=== PATIENT | male | born 1980 | race African-American/Black ===

== ENCOUNTER 2021-12-01 13:01 | Emergency (ER) | payer BC ==
[2021-12-01] MEDS ORDERED: Ketorolac 30 MG/ML SDV IVPUSH ONE (13:19)
[2021-12-01] MEDS ORDERED: Metoclopramide 10 MG/2 ML SDV IVPUSH ONE (13:19)
[2021-12-01] MEDS ORDERED: diphenhydrAMINE 50 MG/ML SDV IVPUSH ONE (13:19)
[2021-12-01] MEDS ORDERED: Sodium Chloride 0.9% 1,000 ML IV ONE (13:19)
[2021-12-01] MEDS ORDERED: LORazepam 2 MG/ML Syringe IVPUSH ONE (13:41)
[2021-12-01] MEDS ORDERED: LORazepam 2 MG/ML SDV IVPUSH ONE (13:43)
[2021-12-01 14:38] VITALS: BP 110/61; PULSE 54
== END 2021-12-01 14:38 | disposition home or self-care (01) ==
LOC: MW.ED 13:01
DX: G43.909 Migraine, unspecified, not intractable, without status migrainosus (principal); E03.9 Hypothyroidism, unspecified; Z79.899 Other long term (current) drug therapy
CPT/HCPCS: 96361; 96374; 96375; 99283; J1200; J1885; J2060; J2765; J7030

== ENCOUNTER 2023-05-03 10:23 | Day surgery (SDC) | payer BC ==
[2023-05-03] MEDS ORDERED: propofoL 50 ML ONE (11:27)
[2023-05-03] MEDS ORDERED: Lactated Ringers 1,000 ML IV SCH (12:00)
[2023-05-03 13:51] VITALS: BP 115/67; PULSE 62
== END 2023-05-03 13:15 | disposition home or self-care (01) ==
LOC: MW.SDS 10:23
PROVIDERS: ATTEND Surgery
DX: Z12.11 Encounter for screening for malignant neoplasm of colon (principal); G47.30 Sleep apnea, unspecified; F41.9 Anxiety disorder, unspecified; F32.A Depression, unspecified; M54.2 Cervicalgia; G47.33 Obstructive sleep apnea (adult) (pediatric); Z79.899 Other long term (current) drug therapy; Z79.890 Hormone replacement therapy
CPT/HCPCS: 45378; J2704; J7120